=== PATIENT | male | born 1950 | race Caucasian/White ===

== ENCOUNTER → 2018-06-12 | Outpatient (CLI) | payer OTHER ==
[~2018-06-12] MED LIST: BLOOD PRESSURE MEDICATION; COUMADIN
== END ==
LOC: RESP 01:26
PROVIDERS: ATTEND Nurse Practitioner Family
DX: J98.4 Other disorders of lung (principal)
CPT/HCPCS: 94060; 94726; 94729

== ENCOUNTER → 2018-10-01 | Outpatient (CLI) | payer OTHER ==
--- NOTE | 2018-10-01 09:53 | RADIOLOGY IMAGING REPORT ---
FACILITY: [facility] [place] PATIENT NAME: Leobardo Landis : 1950 MR: [id number] V: [id number] EXAM DATE: ORDERING PHYSICIAN: LEOBARDO FREEMAN TECHNOLOGIST: Location: [facility] - [place] Patient: Leobardo Landis : 1950 Visit/Account:[id number] Date of Sevice: 10/01/2018 ADDENDUM #1 ADDENDUM: A moderate chronic appearing compression fracture is present in the lower thoracic spine. Report Dictated By: Raimundo Kay MD at 10/01/2018 10:22 AM Report E-Signed By: Raimundo Kay MD at 10/01/2018 10:22 AM ORIGINAL REPORT Chest with lateral, two views. HISTORY: Centrilobular emphysema. COMPARISON: None. The heart size is upper limits of normal. Central pulmonary arteries are mildly enlarged. The media stinum is not widened. The lungs are voluminous. No pleural fluid. Healed fractures are present in the left clavicle and bilateral ribs. IMPRESSION: COPD. Otherwise no evidence of acute cardiopulmonary disease. Report Dictated By: Raimundo Kay MD at 10/01/2018 9:36 AM Report E-Signed By: Raimundo Kay MD at 10/01/2018 9:44 AM WSN:[id number]
--- NOTE | 2018-10-01 10:18 | RADIOLOGY IMAGING REPORT ---
[place] [facility] [place]: Leobardo Landis : 1950 MR: [id number] V: [id number] EXAM DATE: ORDERING PHYSICIAN: LEOBARDO FREEMAN TECHNOLOGIST: Location: [facility] Patient: Leobardo Landis : 1950 Visit/Account:[id number] Date of Sevice: 10/01/2018 NM VENTILATION & PERFUSION Indication: 67-year-old male with history of pulmonary embolus and shortness of breath. Comparison study: Chest x-ray October 01, 2018. CT of the chest from March 06, 2007. Procedure: Following the intravenous injection of technetium 99m labeled MAA 2.0 mCi and ventilation from a aerosol technetium 99m labeled DTPA 30.5 mCi, perfusion ventilation imaging was performed in standard fashion. The study is correlated with a chest x-ray from chest x-ray October 01, 2018. Findings: Perfusion imaging: There is diminished perfusion to the upper lobes consistent with this pa tient's central lobar emphysema. There are no peripherally based segmental or subsegmental defects, but there is redistribution of blood flow inferiorly on both sides. Ventilation: There is clumping of the aerosolized DTPA, but there is mildly heterogeneous distributio n of radioisotope throughout the lungs. Chest x-ray: The chest x-ray shows hyperinflation of the lungs and significant prominence of central pulmonary vessels consistent with chronic pulmonary hypertension. IMPRESSION: 1. Low probability for acute pulmonary was. The findings of the perfusion scan are consistent with the patient's known central lobar emphysema. There are no unmatched peripherally based wedge-shaped perfusion defects to suggest pulmonary embolus. 2. Ventilation shows heterogeneous uptake with clumping of radioisotope centrally. 3. Chest x-ray shows findings of hyperinflation with chronic pulmonary hypertension. Report Dictated By: Julian Mart MD at 10/01/2018 10:05 AM Report E-Signed By: Julian Mart MD at 10/01/2018 10:11 AM WSN:[id number]
== END ==
LOC: NUC 01:29
PROVIDERS: ATTEND Internal Medicine Pulmonary Disease
DX: J44.9 Chronic obstructive pulmonary disease, unspecified (principal)
CPT/HCPCS: 71046; 78582; A9540; A9567